=== PATIENT | male | born 1995 ===

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

== ENCOUNTER 2020-05-22 07:54 | Emergency (ER) | payer OTHER ==
[2020-05-22 08:07] VITALS: BP 120/87; PULSE 52; TEMP 99.1; BMI 26.4
[2020-05-22] MEDS ORDERED: IBUPROFEN 600 MG TABLET (FP) PO ONE ×2 (08:50→09:13)
== END 2020-05-22 09:43 | disposition home or self-care (01) ==
LOC: FER 07:54
DX: R07.89 Other chest pain (principal)
CPT/HCPCS: 71046-TC-FY; 73030-TC-LT-FY; 93005; 99285-25